=== PATIENT | female | born 1950 | race Two or more races ===

== ENCOUNTER 2023-05-26 22:05 | Emergency (ER) | payer BC, OTHER ==
[~2023-05-26] VITALS: Ht 152.4 cm; Wt 66.0 kg
[2023-05-26 23:01] VITALS: BP 134/65
== END 2023-05-27 02:58 | disposition left against medical advice (07) ==
LOC: ER 22:05
DX: R22.31 Localized swelling, mass and lump, right upper limb (principal); Z53.21 Procedure and treatment not carried out due to patient leaving prior to being seen by health care provider